=== PATIENT | female | born 1995 | race Caucasian/White ===

== ENCOUNTER 2019-11-12 18:43 | Emergency (ER) | payer MEDICAID, SELFPAY ==
[2019-11-12 18:44] VITALS: BP 135/69; PULSE 105; RESP 17; TEMP 36.9; O2SAT 100; BMI 20.6
--- NOTE | 2019-11-12 19:09 | HMH.EDUTC ---
[facility] Clinical Impression: Nausea & vomiting Qualifiers: Vomiting type: unspecified Vomiting Intractability: unspecified Qualified Code(s): R11.2 - Nausea with vomiting, unspecified Disposition: Home, Self-Care Condition on Discharge: Good Instructions: Nausea and Vomiting-Adult, Ondansetron, Buprenorphine Sublingual and Buccal (opioid dependence), Preventing the Spread of Coronavirus Discharge Instructions Additional Instructions: ? Drink extra fluids with and between meals. If you have difficulty drinking, try very small amounts of water or suck on ice chips. ? Avoid fruit juices, as these do not replace minerals and can actually increase diarrhea. ? Children and adults can use sports drinks to replenish electrolytes. Younger children and infants should use products formulated for children, like oral rehydration solutions. ? Eat food in small amounts and let your stomach recover. ? Get lots of rest. You may feel tired or weak. ? No greasy or fried foods for the next 24-48 hours BRAT diet Bananas Rice Apples and [employer] ? Make sure to drink plenty of liquids ? Return if needed ? Straight to ER if any life threatening symptoms ? Zofran as prescribed You was tested for COVID 19 today in the office, call back to the [facility] tomorrow for test results You was given a handout with instructions for Self Quarantine and Self isolation for COVID19 make sure to follow those instructions Call and speak with Physician that prescribes your Subutex if you continue to have nausea and vomiting while taking this medication ? Follow up with family doctor in the next 48-72 hours if no improvement or any worsening of symptoms Prescriptions: Ondansetron [Zofran 4mg ODT] 4 mg PO Q8HP PRN #10 tab PRN Reason: Nausea Transmission Status: Pending to [facility] #[id number] Referrals: PCP,No [Primary Care Provider] - As needed Forms: Work/School Release Time of Disposition: 19:22 Medical Decision Making - [place] Inquiry Pt receiving controlled substance: Gaby Perry was queried for this patient: No Vital Signs: 11/12/19 18:44 Temperature 98.4 F Temperature Source Oral Pulse Rate [Right] 105 H Respiratory Rate 17 Blood Pressure [Right Arm] 135/69 Blood Pressure Mean [Right Arm] 91 02 Sat by Pulse Oximetry 100 Orders (Tests/Meds): ORDERS Category Date Time Status Coronavirus 19 Swab (OUTPT) Routine Lab 11/12/19 18:57 Received [facility] [place] - General Stated complaint: fever,vomiting, need a not for work Time Seen by Provider: 11/12/19 19:09 Mode of Arrival: Ambulatory Limitations: No Limitations Description of Symptoms (Recalled from Triage Doc. by RN): C/O NV, fever, and decreased appetite HEENT Symptoms (Recalled from RN notes): No Resp Symptoms (Recalled from RN notes): No Skin Symptoms (Recalled from RN notes): No MS Symptoms (Recalled from RN notes): No Functional Status (Recalled from RN notes): na - History of Present Illness Provider Complaint: Patient states that she has been having nausea and vomiting low grade fever, and loss of appetite since Sunday on and off States that she was recently started on Subutex and not sure if that may be causing her symptoms States that she was sent home from work earlier and they told her that she needed to be checked so she came in States that she last vomited this morning and has been drinking fluids ok - Related Data Previous Rx's Medication Instructions Recorded Ondansetron [Zofran 4mg ODT] 4 mg PO Q8HP PRN #10 tab.rapdis 06/27/19 Ondansetron [Zofran 4mg ODT] 4 mg PO Q8HP PRN #10 tab 11/12/19 Allergies Allergy/AdvReac Type Severity Reaction Status Date / Time Penicillins [PENICILLINS] Allergy Intermediate I-RASH Unverified 05/24/17 16:36 - Worker's Comp Is this a Worker's Comp case?: No [facility] History - Hepatitis A Screen Drug use history?: No High risk sexual behaviors?: No History of sexually transmitted infection?: No Currently employ
[2019-11-12 19:28] VITALS: BP 133/87; PULSE 102; RESP 18; TEMP 36.7; O2SAT 100
== END 2019-11-12 19:29 | disposition home or self-care (01) ==
PROVIDERS: Emergency Provider Nurse Practitioner
DX: R11.2 Nausea with vomiting, unspecified (principal); Z20.828 Contact with and (suspected) exposure to other viral communicable diseases; Z88.0 Allergy status to penicillin; F17.210 Nicotine dependence, cigarettes, uncomplicated
CPT/HCPCS: 99201; U0003

== ENCOUNTER 2019-12-12 09:35 | Emergency (ER) | payer OTHER, SELFPAY ==
[2019-12-12 09:36] VITALS: BP 142/93; PULSE 107; RESP 18; TEMP 37.4; O2SAT 99; BMI 28.8
[2019-12-12 10:31] LABS: Strep Scrn Group A (Rapid) Negative (Negative)
--- NOTE | 2019-12-12 10:47 | HMH.EDGENADL ---
ED Disposition Clinical Impression: Viral URI, Left otitis media with spontaneous rupture of eardrum Disposition: Home, Self-Care Condition on Discharge: Good Instructions: Middle Ear Infection Prescriptions: Ibuprofen [Ibuprofen 800mg Tablet] 800 mg PO TIDP PRN #20 tab PRN Reason: Moderate Pain Transmission Status: Pending to [facility] # Azithromycin [Z-Bebeto 250mg Tab] 250 mg PO DIRECTED #6 tab Transmission Status: Pending to [facility] # Referrals: PCP,Gaby [Primary Care Provider] - Odell Mera MD [Staff Physician] - - Critical Care Critical Care Time: No Attestation: On 12/12/19, the high probability of a clinically significant, sudden or life threatening deterioration of the following system(s) required my full and direct attention, intervention and personal management. The time I documented below is in addition to time spent performing reported procedures but includes the following listed in this critical care notation. Medical Decision Making - Medical Records Medical records reviewed: Yes: I reviewed the patient's medical records. - [place] Inquiry Pt receiving controlled substance: No Vital Signs: 12/12/19 09:36 Temperature 99.4 F Temperature Source Oral Pulse Rate [Left Radial] 107 H Respiratory Rate 18 Blood Pressure [Right Arm] 142/93 H Blood Pressure Mean [Right Arm] 109 Blood Pressure Source [Right Arm] Automatic Cuff Blood Pressure Position [Right Arm] Sitting 02 Sat by Pulse Oximetry 99 Oxygen Delivery Method Room Air - Lab Data Lab Results 12/12/19 10:11: Influenza Type A Ag Negative, Influenza Type B Ag Negative 12/12/19 10:11: Group A Strep Rapid Negative Orders (Tests/Meds): ED MEDICATIONS Discontinued Medications Generic Name Dose Route Start Last Admin Trade Name Freq PRN Reason Stop Dose Admin Acetaminophen 500 mg 12/12/19 09:54 12/12/19 10:03 Tylenol 500mg Tablet PO 12/12/19 09:55 500 mg ONCE ONE Administration Diphenhydramine HCl 25 mg 12/12/19 09:54 12/12/19 10:04 Benadryl 25mg Capsule PO 12/12/19 09:55 25 mg ONCE ONE Administration ORDERS Category Date Time Status Strep Screen Confirmation Stat Micro 12/12/19 10:11 Received - Reevaluation(s) Time: 10:51 Reevaluation #1: On reevaluation, patient is feeling better. I will place the patient on a short course antibiotics given her evidence of ruptured tympanic membrane. Patient given ENT follow-up. Patient had coronavirus testing by her employer 2 days ago. Pending results. Given isolation and strict return precautions. Verbalized understanding. Medical Decision Narrative: 24-year-old female presented to the emergency department with URI type symptoms. Patient is physical examination consistent with ruptured tympanic membrane. Concern for otitis media. Work-up will be initiated. General Adult HPI - General Chief complaint: PAIN Stated complaint: sore throat,cg,ear pain Time Seen by Provider: 12/12/19 09:45 Mode of Arrival: Ambulatory Limitations: No Limitations Description of Symptoms (Recalled from ER Triage Doc. by RN): Pt states that she has been having ear pain, runny nose and cough with green sputum. She works in a [employer] which tested her 2 days ago as protocol but hasn't got the results back yet - History of Present Illness HPI narrative: 24-year-old female presented to the emergency department with URI type complaints. Patient is complaining of ear pain, sore throat as well as a mild cough. Patient denies any sick contacts. She states that the ear pain is been going on for the last 5 days. Dull in nature. Worse on the left side. She denies any drainage or trauma. Patient is no having any neck pain. She has had a mild nonproductive cough. No difficulty breathing or shortness of breath. No associated chest pain or palpitations. She has had some nasal drainage. No abdominal pain or vomi
[2019-12-12 10:48] VITALS: BP 126/84; PULSE 104; O2SAT 99
[2019-12-12 11:07] VITALS: BP 122/65; PULSE 78; RESP 16; TEMP 36.6; O2SAT 98
== END 2019-12-12 11:09 | disposition home or self-care (01) ==
PROVIDERS: Emergency Provider Emergency Medicine
DX: J06.9 Acute upper respiratory infection, unspecified (principal); H66.92 Otitis media, unspecified, left ear; H72.92 Unspecified perforation of tympanic membrane, left ear; F17.210 Nicotine dependence, cigarettes, uncomplicated; Z88.0 Allergy status to penicillin
CPT/HCPCS: 87275; 87276; 87430; 99283